=== PATIENT | male | born 1980 | race Caucasian/White ===

== ENCOUNTER 2021-01-01 18:49 | Emergency (ER) | payer OTHER, SELFPAY ==
[2021-01-01 18:55] VITALS: BP 129/80; PULSE 75; RESP 18; TEMP 36.8; O2SAT 99; BMI 22.7
--- NOTE | 2021-01-01 19:44 | DI.CT.S_ITS ---
PROCEDURE: CT CERVICAL SPINE WO CON INDICATIONS: neck pain TECHNIQUE: Noncontrast 3 mm thick sections acquired from the skull base to the T4 level. Sagittal and coronal reformats were then constructed. For radiation dose reduction, the following was used: automated exposure control, adjustment of mA and/or kV according to patient size. COMPARISON: None. FINDINGS: Image quality: Excellent. Bones: Minimally displaced fracture involving the right C7 lateral mass, base of the right C7 transverse process, the right C7 superior facet and the base of the right C7 lamina. Visualized superior ribs are intact. Chronic right clavicle fracture which is healed in deformity. Soft tissues: Prevertebral soft tissues are normal in thickness. No paravertebral hematomas. No apical pneumothoraces. Polypoid mucosal thickening noted in the visualized maxillary sinuses. IMPRESSION: Right C7 fracture extending through the lateral mass, base of the transverse process, superior facet and base of lamina. Findings discussed with Dr. Cabrera on January 01, 2021 at 8:25 p.m.. Dictated by: Nena Rodriguez MD, PhD on 01/01/2021 at 20:17 Approved by: Nena Rodriguez MD, PhD on 01/01/2021 at 20:27
[2021-01-01 20:48] VITALS: BP 137/80; PULSE 65; RESP 16; TEMP 36.8; O2SAT 97
--- NOTE | 2021-01-01 20:53 | ED.NECK ---
HPI - Neck Pain/Injury General Chief Complaint: Neck Pain/Injury Stated Complaint: ref from [facility] for CT scan Time Seen by Provider: 01/01/21 20:43 Source: patient Mode of arrival: Family Vehicle Limitations: no limitations History of Present Illness HPI Narrative: Patient is a 40-year-old male here because he states that he was told to come in for a CT scan of the cervical spine. Approximately 2 weeks ago while he was at work he hit the top of his head. There was no loss of consciousness. He is not on blood thinners. Since that time has had some right-sided neck/upper back discomfort. Over the past couple days he felt like this was getting worse. Some tingling in his right hand. He went to an outside walk-in clinic. Had x-rays performed. According to the provider there there was concern about a potential dens fracture. He is placed in a cervical collar and sent to an outside emergency department. At that visit he was seen. No further imaging was done. He received a phone call from the walk-in clinic provider this morning asking how he was doing. Patient informed the provider that he did not get a CT scan at the following emergency visit. He was advised to come to this emergency department for CT scan. Patient states that especially at night he has had right-sided neck pain. He is also having some tingling in his hand. He reports no other injuries from the event. No prior neck injuries. Related Data Home Medications Medication Instructions Recorded Confirmed No Known Home Medications 01/01/21 01/01/21 Allergies Allergy/AdvReac Type Severity Reaction Status Date / Time No Known Drug Allergies Allergy Verified 01/01/21 18:55 Review of Systems Constitutional Constitutional: Denies fever(s) and Denies headache(s) Eyes Eyes: Denies change in vision ENT Ears, Nose, Mouth, and Throat: Denies headache(s) Cardiovascular Cardiovascular: Denies chest pain and Denies dyspnea Respiratory Respiratory: Denies dyspnea Gastrointestinal Gastrointestinal: Denies abdominal pain, Denies nausea and Denies vomiting Musculoskeletal Musculoskeletal: Reports system reviewed and no additional complaints, except as documented and Reports as per HPI Integumentary/Breasts Skin/Breast: Reports system reviewed and no additional complaints, except as documented Neurologic Neurologic: Reports as per HPI and Denies headache(s) Endocrine Endocrine: Reports system reviewed and no additional complaints, except as documented Hematologic/Lymphatic On Anticoagulants: No Allergic/Immunologic Allergic/Immunologic: Reports system reviewed and no additional complaints, except as documented Patient History Medical History Healthy adult Social History Smoking Status: Never smoker Smoking Status: Never smoker alcohol intake frequency: 0-2 drinks per day Substance Use Type: does not use Exam Initial Vital Signs Initial Vital Signs: Vital Signs Temperature 98.2 F 01/01/21 18:55 Pulse Rate 75 01/01/21 18:55 Respiratory Rate 18 01/01/21 18:55 Blood Pressure 129/80 01/01/21 18:55 Pulse Oximetry 99 01/01/21 18:55 Const General: cooperative, healthy appearing, comfortable and well developed Limitations: mental status not altered HENMT Head: normal to inspection, normocephalic, atraumatic and No abrasion Eyes General: appearance normal, both eyes and all related structures Chest Chest: normal inspection of the chest Resp Effort & Inspection: normal respiratory effort Auscultation: clear to auscultation bilaterally Cardio Rate: regular rate Rhythm: regular rhythm Pulses: radial pulses present on the right GI Inspection: normal to inspection Back/Spine/Pelvis Back: No CVA tenderness Cervical Spine: cervical muscular tenderness (Right-sided) and cervical spinal tenderness (Lower cervical region) Thoracic/Lumbar Spine: No paraspinal tenderness, No thoracic spinal tenderness and No lumbar spinal tenderness Skin General: no rashes or lesions noted Lesions: no lesions Rashes: no rashes Neuro General: patient alert, patient awake, patient oriented x3 and moves all extremities Cognition: normal cognition Speech: speech normal Other: Patient does report decreased sensation to light touch in the medial nerve distribution of his right palm compared to the left. Strength biceps 5/5 equal bilaterally, triceps 5/5 equal bilaterally, wrist flexion and extension 5/5 equal bilateral. AIN/PIN intact bilateral. Extrem General: capillary refill normal Other: Full range of motion of right shoulder right elbow and right wrist. Left upper extremity bilateral lower extremities unremarkable. Psych Appearance: grossly normal and well kempt Course Orders Ordered: ED Orders 01/01/21 19:44 CT cervical spine wo con Stat Vital Signs Vital signs: Vital Signs - 8 hr 01/01/21 18:55 01/01/21 20:48 01/01/21 23:14 Temperature 98.2 F 98.3 F Pulse Rate 75 65 74 Respiratory Rate 18 16 16 Blood Pressure 129/80 150/100 H Blood Pressure [Left Arm] 137/80 Pulse Oximetry 99 97 100 01/01/21 23:15 Temperature Pulse Rate Respiratory Rate Blood Pressure 150/95 H Blood Pressure [Left Arm] Pulse Oximetry MDM - Neck Pain/Injury Imaging Data CT - cervical spine: Radiologist's Impression: [address] [id number] Scan ReportSigned Patient: Macho Alexis KMR#: [id number]: [id number]:[id number]/Sex: 40 / MDate of Service: 01/01/21Loc: EDAccession Number: [id number] Procedure: CT cervical spine wo con Ordering Provider: Ani Brar D.O. PROCEDURE: CT CERVICAL SPINE WO CON INDICATIONS: neck pain TECHNIQUE: Noncontrast 3 mm thick sections acquired from the skull base to the T4 level. Sagittal and coronal reformats were then constructed. For radiation dose reduction, the following was used: automated exposure control, adjustment of mA and/or kV according to patient size. COMPARISON: None. FINDINGS: Image quality: Excellent. Bones: Minimally displaced fracture involving the right C7 lateral mass, base of the right C7 transverse process, the right C7 superior facet and the base of the right C7 lamina. Visualized superior ribs are intact. Chronic right clavicle fracture which is healed in deformity. Soft tissues: Prevertebral soft tissues are normal in thickness. No paravertebral hematomas. No apical pneumothoraces. Polypoid mucosal thickening noted in the visualized maxillary sinuses. IMPRESSION: Right C7 fracture extending through the lateral mass, base of the transverse process, superior facet and base of lamina. Findings discussed with Dr. Brar on January 01, 2021 at 8:25 p.m.. Dictated by: Nena Rodriguez MD, PhD on 01/01/2021 at 20:17 Approved by: Nena Rodriguez MD, PhD on 01/01/2021 at 20:27 [facility] Narrative Medical decision making narrative: He was placed in [place] collar upon arrival His CT scan today does show a C 7 fractures on the right side. This does correspond to the area where he is having discomfort. The tingling that he has in the median nerve on the right also fits this nerve distribution. He has no muscular abnormalities found on the exam. His initial injury was approximately 2 weeks ago. I did discuss the case with Dr. Yee with Ortho Spine at [facility] who stated that the patient should be transferred for further evaluation and treatment and potential surgery. I did discuss this with the patient as well. He expressed understanding. Dr. Yee will accept the patient. Patient will drive by private vehicle to [facility] Emergency Department. I do feel given his presentation, his time frame of 2 weeks since the injury and his physical exam that private vehicle would be okay. Patient states that he is comfortable driving private vehicle. We did offer ambulance however he declined. Discharge Plan Departure Patient Disposition: [facility] Clinical Impression: C7 cervical fracture Activity Restrictions/Additional Instructions: Your being transferred to [facility] for further evaluation of your cervical fracture. The collar that was placed here in the emergency department does need to stay on. You are to go directly to the [facility] Emergency Department. I have discussed your case with Dr. Yee with orthopedic spine. Prescriptions: No Action No Known Home Medications RF: 0
[2021-01-01 23:14] VITALS: BP 150/100; PULSE 74; RESP 16; O2SAT 100
[2021-01-01 23:15] VITALS: BP 150/95
== END 2021-01-02 00:09 | disposition short-term general hospital (02) ==
PROVIDERS: Emergency Provider Emergency Medicine
DX: S12.600A Unspecified displaced fracture of seventh cervical vertebra, initial encounter for closed fracture (principal); W22.8XXA Striking against or struck by other objects, initial encounter; Y99.0 Civilian activity done for income or pay
CPT/HCPCS: 72125; 99283; 99284